=== PATIENT | female | born 1955 | race Caucasian/White ===

== ENCOUNTER 2018-04-29 07:10 | Day surgery (SDC) | payer BC ==
[~2018-04-29] VITALS: Ht 170.2 cm; Wt 76.5 kg
[2018-04-29 08:26] VITALS: Ht 170.2 cm; Wt 76.5 kg
[2018-04-29] MEDS ORDERED: diabetes medication (08:27)
[2018-04-29] MEDS ORDERED: cholesterol med (08:27)
[2018-04-29 08:50] VITALS: BP 149/75; PULSE 68; RESP 12
[2018-04-29] MEDS ORDERED: MIDAZOLAM 1 MG/ML 2 ML INJ ONE (09:43)
[2018-04-29] MEDS ORDERED: FENTAnyl 50 MCG/ML VIAL ONE (09:43)
[2018-04-29 09:55] VITALS: BP 114/62; PULSE 62; RESP 16
== END 2018-04-29 12:04 | disposition home or self-care (01) ==
LOC: GIL 07:10
PROVIDERS: ATTEND Internal Medicine Gastroenterology
DX: Z12.11 Encounter for screening for malignant neoplasm of colon (principal); K29.60 Other gastritis without bleeding; E11.9 Type 2 diabetes mellitus without complications
CPT/HCPCS: 43239; 82962; 88305; J2250; J3010; Z7610